=== PATIENT | female | born 1960 ===

== ENCOUNTER 2022-01-10 09:49 | Observation (INO) ==
[~2022-01-10 09:49] MED LIST: Buffered Lidocaine 1% SYRIN 1 ml INTRADERM ONE; Lactated Ringers 1000 ml BAG 1,000 ML IV SCH; Naloxone 0.4 mg VIAL 0.4 mg/ml 1 ml VIAL IV PRN; Ondansetron 4 mg VIAL 2 MG/ML 2 ml VIAL IV PRN; fentaNYL 100 mcg/2 ml 50 MCG/ML VIAL IV PRN
[2022-01-10] MEDS ORDERED: ceFAZolin 2 GM in NS PREMIX 2 GM/100 ML BAG IVPB ONE (10:12)
[2022-01-10] MEDS ORDERED: Phenylephrine IV 10 MG/ML 1 ml VIAL ONE (11:11)
[2022-01-10] MEDS ORDERED: Lidocaine 2% PF 5 ML VIAL ONE (11:11)
[2022-01-10] MEDS ORDERED: Dexamethasone IV 4 MG/ML VIAL 1 ml VIAL ONE ×2 (11:27→12:57)
[2022-01-10] MEDS ORDERED: Midazolam 2 mg/2 ml VIAL 1 mg/ml 2 ml VIAL (2 mg) ONE (11:27)
[2022-01-10] MEDS ORDERED: Lidocaine 1% MPF 5 ML VIAL ONE (11:28)
[2022-01-10] MEDS ORDERED: ROPIVACAINE 5 MG/ML 30 ML BTL (0.5%) ONE ×2 (11:33→12:07)
[2022-01-10] MEDS ORDERED: Propofol 10 MG/ML 20 ML BTL ONE (12:14)
[2022-01-10] MEDS ORDERED: fentaNYL 250 mcg/5 ml 50 MCG/ML 5 ml VIAL (250 MCG) ONE (12:15)
[2022-01-10] MEDS ORDERED: Rocuronium 50 mg VIAL 10 mg/ml 5 ml VIAL (50 mg) ONE (12:17)
[2022-01-10] MEDS ORDERED: Ondansetron 4 mg VIAL 2 MG/ML 2 ml VIAL ONE (12:57)
[2022-01-10] MEDS ORDERED: HYDROmorphone 0.5 MG/0.5 ML SYRINGE ONE ×2 (13:01→14:07)
[2022-01-10] MEDS ORDERED: hydrALAZINE 20 mg/ml 1 ML Vial IV ONE (14:07)
[2022-01-10] MEDS ORDERED: Ketamine HCL 50 mg/ml 10 ml VIAL (500 MG) ONE (14:13)
[2022-01-10] MEDS ORDERED: Lactulose 30 ml UDC PO PRN (14:18)
[2022-01-10] MEDS ORDERED: Ondansetron ODT 4 mg TAB 4 MG TAB PO PRN (14:18)
[2022-01-10] MEDS ORDERED: Ondansetron 4 mg VIAL 2 MG/ML 2 ml VIAL IV PRN (14:18)
[2022-01-10] MEDS ORDERED: Magnesium Hydroxide LIQ 30 ML UDC PO PRN (14:18)
[2022-01-10] MEDS ORDERED: Morphine 2 MG/ML SYRINGE IV PRN (14:18)
[2022-01-10] MEDS ORDERED: Lactated Ringers 1000 ml BAG 1,000 ML IV SCH (15:00)
[2022-01-10] MEDS: Magnesium Hydroxide LIQ 30 ML UDC PO SCH (20:50)
[2022-01-10] MEDS ORDERED: ceFAZolin 1 GM ADVAN 1 GM in NS 0.9% 50 ML 50 ML IVPB SCH (21:30)
[2022-01-10] MEDS: ceFAZolin VIAL 1 GM in NS 0.9% 50 ML 50 ML IVPB SCH (22:36)
[2022-01-11] MEDS: ceFAZolin VIAL 1 GM in NS 0.9% 50 ML 50 ML IVPB SCH ×2 (06:23→14:19)
[2022-01-11 06:24] LABS: Hematocrit 39 % (35-47); Hemoglobin 13.3 g/dL (12.0-16.0); Mean Platelet Volume 7.7 fL (7.4-10.4); Platelet Count 300 10^3/uL (150-450)
[2022-01-11 06:38] LABS: Calcium 9.1 mg/dL (8.6-10.3); Potassium 3.6 mmol/L (3.5-5.0); eGFR CKD-EPI 100.5 (>60)
[2022-01-11] MEDS ORDERED: DULoxetine DR 30 mg CAP PO SCH (09:00)
[2022-01-11] MEDS ORDERED: Vitamin THERAPEUTIC TAB PO SCH (09:00)
[2022-01-11] MEDS: Magnesium Hydroxide LIQ 30 ML UDC PO SCH (09:13)
[2022-01-11 11:55] VITALS: BP 121/66
== END 2022-01-11 15:17 | disposition home or self-care (01) ==
LOC: SSU 09:49 → OR 09:49
PROVIDERS: ADMIT Orthopaedic Surgery Adult Reconstructive Orthopaedic Surgery; ATTEND Orthopaedic Surgery Adult Reconstructive Orthopaedic Surgery